=== PATIENT | female | born 1960 | race Caucasian/White ===

== ENCOUNTER 2019-03-28 14:54 | Emergency (ER) | payer MEDICARE, OTHER ==
[~2019-03-28] VITALS: Ht 167.6 cm; Wt 83.9 kg
[~2019-03-28 14:54] MED LIST: BENA5TAB15 PO; DOXY-182 PO; INSU100C7 SQ; INSU100V28 IJ; LEVE250T2 PO; LEVO150T PO; LITH300C4 PO; LORA0.5T PO; MAG30ORA PO; MAGN400O6 PO; METF-442 PO; OLAN10TA3 PO; PRED10TA23 PO; SITA100T PO; TEMA7.5C12 PO; [UNRECOGNIZED DRUG - CODE] PO
[2019-03-28] MEDS ORDERED: ATROPINE SULFATE INJ 1 MG/ML VIAL IV ONE (15:01)
[2019-03-28] MEDS ORDERED: ETOMIDATE 2 MG/ML VIAL IV ONE ×2 (15:01→19:00)
[2019-03-28] MEDS ORDERED: SUCCINYLCHOLINE CHLORIDE 20 MG/ML VIAL IV ONE ×2 (15:01→19:00)
--- NOTE | 2019-03-28 15:34 | NUR ---
PT ROLANDO FROM [facility] FOR NOSE BLEED X 2HRS WOOD GOUGER; PT AAOX2-3, PT ON MONITOR, VSS, PENDING MD HARRISON
[2019-03-28 17:08] LABS: BASOPHILS % (AUTO) 0.1 % (0.0-2.0); LYMPHOCYTES # (AUTO) 1.2 /CMM (0.8-4.8); LYMPHOCYTES % (AUTO) 26.8 % (20.0-44.0); MEAN CORPUSCULAR HGB CONC 31 g/dl (31.0-36.0); MEAN CORPUSCULAR VOLUME 85 fL (82-100); MONOCYTES # (AUTO) 0.4 /CMM (0.1-1.30); MONOCYTES % (AUTO) 9.8 % (2.0-12.0); NEUTROPHILS # (AUTO) 2.8 /CMM (1.8-8.9); NEUTROPHILS % (AUTO) 63.3 % (43.0-81.0); PLATELET COUNT (AUTO) 129 /CMM (150-450); WHITE BLOOD COUNT (AUTO) 4.4 K/uL (4.3-11.0)
[2019-03-28 17:10] LABS: HEMATOCRIT 20 % (33-45)
[2019-03-28 17:11] LABS: HEMOGLOBIN 6.3 g/dL (11.5-14.8)
[2019-03-28 17:14] LABS: CALCIUM, SERUM 8.5 mg/dL (8.5-10.1); CREATININE 0.8 mg/dL (0.6-1.3); POTASSIUM 4.2 mmol/L (3.5-5.1)
[2019-03-28] MEDS ORDERED: RISP0.253 PO (17:45)
[2019-03-28] MEDS ORDERED: LAMO200T2 PO (17:45)
[2019-03-28] MEDS ORDERED: NA P133E RC (17:45)
[2019-03-28] MEDS ORDERED: SIMV20TA6 PO (17:45)
[2019-03-28] MEDS ORDERED: PHEN30SP5 BNOSTRILS (17:45)
[2019-03-28] MEDS ORDERED: PIOG30TA10 PO (17:45)
[2019-03-28] MEDS ORDERED: ACET-868 PO (17:45)
[2019-03-28] MEDS ORDERED: FERR325T23 PO (17:45)
[2019-03-28] MEDS ORDERED: MAGN400O6 PO (17:45)
--- NOTE | 2019-03-28 17:53 | NUR ---
ADMIT 312-1 M/S
[2019-03-28] MEDS ORDERED: CLINDAMYCIN 600 MG in IV D5W 100 ML IV ONE (18:00)
--- NOTE | 2019-03-28 18:15 | NUR ---
EMERGENCY BLOOD TRANSFUSION STARTED; 2 UNITS OF PRBC VIA RAPID TRANSFUSER. WAIVER SIGNED BY , LAB AWARE.
[2019-03-28 18:26] LABS: LYMPHOCYTES % (MANUAL) 27 % (16-48); MONOCYTES % (MANUAL) 8 % (0-11.0); NEUTROPHILS % (MANUAL) 65 (42-76)
[2019-03-28] MEDS ORDERED: PROPOFOL 100 ML ONE ×2 (18:30→21:53)
--- NOTE | 2019-03-28 18:39 | NUR ---
PER MD VERBAL ORDER TO INFUSE 1 MORE PRBC; CALLED LAB.
--- NOTE | 2019-03-28 18:39 | NUR ---
SPOKE TO MINDI AT [facility], REQUESTED ENT SPECIALIST, FAXED FACESHEET TO [phone]. STATES WILL FOLLOW UP WITH REQUEST
--- NOTE | 2019-03-28 18:40 | NUR ---
CALLED [facility], REP STATES [facility] TRANSF[facility] ARE AT [facility], ONLY OB AND PEDS BEDS AVAILABLE
--- NOTE | 2019-03-28 18:41 | NUR ---
CALLED [facility], NURSING SUP STATES NO ENT AVAILABLE.
--- NOTE | 2019-03-28 18:50 | NUR ---
1835: RSI INITIATED, GIVEN ETOMIDATE 20MG IVP AND SUCCYCHOLINE 150MG IVP UNDER THE DIRECT SUPERVISION OF DR COLEMAN ET TUBE PLACED BY MD AND RT AT 1838; 24 AT THE LIP, PLACEMENT CHECK BY BILATERAL BREATH SOUNDS, CXR ORDERS TO CONFIRM PLACEMNT, O2 SAT AT 100; PT COLOR PINK, SKIN IS WARM AND DRY.
--- NOTE | 2019-03-28 18:55 | NUR ---
PER DR COLEMAN VERBAL ORDER TO START PATIENT ON A PROPOFOL DRIP; STARTED PT ON 10MCG/KG AT 1845
[2019-03-28 19:20] LABS: BASOPHILS % (AUTO) 0.6 % (0.0-2.0); HEMATOCRIT 29 % (33-45); HEMOGLOBIN 9.1 g/dL (11.5-14.8); LYMPHOCYTES # (AUTO) 1.2 /CMM (0.8-4.8); LYMPHOCYTES % (AUTO) 35.5 % (20.0-44.0); MEAN CORPUSCULAR HGB CONC 32 g/dl (31.0-36.0); MEAN CORPUSCULAR VOLUME 86 fL (82-100); MONOCYTES # (AUTO) 0.3 /CMM (0.1-1.30); MONOCYTES % (AUTO) 9.1 % (2.0-12.0); NEUTROPHILS # (AUTO) 1.8 /CMM (1.8-8.9); NEUTROPHILS % (AUTO) 54.8 % (43.0-81.0); PLATELET COUNT (AUTO) 113 /CMM (150-450); RED BLOOD CELL COUNT(AUTO) 3.33 MIL/uL (4.0-5.2); WHITE BLOOD COUNT (AUTO) 3.3 K/uL (4.3-11.0)
--- NOTE | 2019-03-28 19:26 | NUR ---
DR. COLEMAN SPOKE WITH DR. BAIG FROM [facility].
--- NOTE | 2019-03-28 20:07 | NUR ---
SPOKE WITH KASH BA, NO ICU BEDS AVAILABLE.
--- NOTE | 2019-03-28 20:15 | NUR ---
PER MINDI AT [facility] PT IS ACCEPTED TO ICU BY DR PALACIOS. AWAITING CALL FROM PT PLACEMENT FOR BED ASSIGNMENT. NUMBER FOR CASE [phone] OPTION 2
--- NOTE | 2019-03-28 20:44 | NUR ---
report given to felipe carney at [facility]; pt will be in room 4561
--- NOTE | 2019-03-28 20:49 | NUR ---
[facility] TO [facility] ETA [id number] TRIP #[id number]
--- NOTE | 2019-03-28 21:58 | NUR ---
PLEASE CALL TRISTEN AT [facility] WHEN PT LEAVES [facility] [phone] OPTION 2
--- NOTE | 2019-03-28 23:22 | NUR ---
REPORT GIVEN TO ZOEY CHAVEZ AT [facility] ICU FOR DINESH.
--- NOTE | 2019-03-28 23:35 | NUR ---
UPDATED CCT ETA 0030
[2019-03-29] MEDS ORDERED: PROPOFOL 10MG/ML 50ML 50 ML IV PRN
--- NOTE | 2019-03-29 00:34 | NUR ---
TIANNA CALLED CCT ETA 15 MIN
[2019-03-29] MEDS ORDERED: PROPOFOL 100 ML ONE (01:06)
[2019-03-29 01:11] VITALS: BP 167/76
--- NOTE | 2019-03-29 01:30 | NUR ---
CCT TRANSPORT IN FACILITY; REPORT GIVEN TO GAMA CHAVEZ CCT NURSE WITH [address] FOR TRANSPORT TO [facility] ICU, TOOK OVER CARE OF PT, LEFT VIA GURNEY,LEFT WITH PROPOFOL DRIP PER MD ORDER.
== END 2019-03-29 02:03 | disposition short-term general hospital (02) ==
LOC: ER 15:00 → MED 18:15 → UNDOADMIN 18:15
DX: D64.9 Anemia, unspecified (principal); R04.0 Epistaxis; I78.0 Hereditary hemorrhagic telangiectasia; I10 Essential (primary) hypertension; K21.9 Gastro-esophageal reflux disease without esophagitis; E11.9 Type 2 diabetes mellitus without complications; F25.9 Schizoaffective disorder, unspecified; E03.9 Hypothyroidism, unspecified; E78.5 Hyperlipidemia, unspecified; Z88.0 Allergy status to penicillin; Z88.8 Allergy status to other drugs, medicaments and biological substances; Z79.899 Other long term (current) drug therapy; Z79.4 Long term (current) use of insulin
CPT/HCPCS: 30901; 31500; 36415; 36430; 51702; 71045; 80048; 85025 ×2; 85730; 86850; 86921 ×2; 87081; 96365; 99291; 99292; C1751; J0330 ×2; J0461; J3490 ×5; J7060; G0378; P9016-BL

== ENCOUNTER 2019-06-23 16:29 | Emergency (ER) | payer MEDICARE, OTHER ==
[~2019-06-23] VITALS: Ht 157.5 cm; Wt 108.4 kg
[~2019-06-23 16:29] MED LIST changes: +ACET-868 PO; -DOXY-182 PO; +FERR325T23 PO; -INSU100V28 IJ; +LAMO200T2 PO; -LEVE250T2 PO; -LITH300C4 PO; -LORA0.5T PO; -MAG30ORA PO; -METF-442 PO; +NA P133E RC; -OLAN10TA3 PO; +PHEN30SP5 BNOSTRILS; +PIOG30TA10 PO; -PRED10TA23 PO; +RISP0.253 PO; +SIMV20TA6 PO; -SITA100T PO; -TEMA7.5C12 PO; -[UNRECOGNIZED DRUG - CODE] PO
--- NOTE | 2019-06-23 16:35 | NUR ---
LUNA, FROM [facility] AT [facility] FOR [facility], C/O BILATERAL LOWER EXTREMITY PAIN X 1 WEEK, 07/03 PS, TO ER BED 11, HOOKED TO MONITOR, CHANGED TO GOWR[place], AWAITING MD HARRISON.
[2019-06-23] MEDS ORDERED: LEVO150T8 PO (16:49)
[2019-06-23] MEDS ORDERED: ATOR10TA PO (16:49)
[2019-06-23] MEDS ORDERED: PANT40TA4 PO (16:49)
[2019-06-23] MEDS ORDERED: SITA100T PO (16:49)
--- NOTE | 2019-06-23 17:02 | NUR ---
PA FOSTER AT BEDSIDE
--- NOTE | 2019-06-23 18:39 | NUR ---
CALLED [facility] FOR TRANSPORT BACK TO NURSING FACILITY, ETA 2029 , TRIP #[id number]
--- NOTE | 2019-06-23 19:40 | NUR ---
REPORT GIVEN TO RUBIN ([employer] DEMONSTRATOR OF JEAN CLAUDE AT [facility]), CHIEF DEPUTY COURT CLERK NOT AVAILABLE AT THIS TIME. SHE WILL INFORM CHIEF DEPUTY COURT CLERK TRISH VARGAS OF PATIENT COMING BACK TO FACILITY.
--- NOTE | 2019-06-23 19:42 | NUR ---
REPORT GIVEN TO LAWSON CHAVEZ FOR DINESH
--- NOTE | 2019-06-23 21:56 | NUR ---
ALEJANDRO #[phone] AT BEDSIDE FOR PT TRANSPORT TO [facility]. NAD NOTED. PT IS STABLE FOR TRANSPORT. REPORT GIVEN
[2019-06-23 23:04] VITALS: BP 128/75
== END 2019-06-23 21:56 | disposition home or self-care (01) ==
LOC: ER 16:42
DX: M79.672 Pain in left foot (principal); M79.671 Pain in right foot; E11.9 Type 2 diabetes mellitus without complications; E66.9 Obesity, unspecified; I10 Essential (primary) hypertension; E78.5 Hyperlipidemia, unspecified; E03.9 Hypothyroidism, unspecified; K21.9 Gastro-esophageal reflux disease without esophagitis; F25.9 Schizoaffective disorder, unspecified; L68.0 Hirsutism; R56.9 Unspecified convulsions; Z68.41 Body mass index [BMI] 40.0-44.9, adult; Z88.0 Allergy status to penicillin; Z88.6 Allergy status to analgesic agent; Z88.8 Allergy status to other drugs, medicaments and biological substances; Z79.4 Long term (current) use of insulin
CPT/HCPCS: 73630-TC